=== PATIENT | female | born 1940 | race Caucasian/White ===

== ENCOUNTER 2016-06-02 22:20 | Inpatient (IN) | payer OTHER ==
[2016-06-03 00:15] VITALS: BP 114/55
[2016-06-03] MEDS ORDERED: clonazePAM 0.5 MG TABLET PO PRN (00:30)
[2016-06-03] MEDS ORDERED: MAGNESIUM HYDROXIDE 30 ML UDC PO PRN (00:30)
[2016-06-03] MEDS ORDERED: MAG HYDROX/AL HYDROX/SIMETH 30 ML UDC PO PRN (00:30)
[2016-06-03] MEDS ORDERED: TEMAZEPAM 7.5 MG CAPSULE PO PRN (00:30)
[2016-06-03] MEDS ORDERED: ACETAMINOPHEN 325 MG TABLET PO PRN (00:30)
--- NOTE | 2016-06-03 00:45 | NUR ---
GPS ARCHIVIST MILITARY HISTORY NOTES: ADMITTED A 76 YO FEMALE FROM [facility] ON 5150 HOLD FOR GD. PATIENT INITIALLY CAME FROM [facility]. PER HOLD, THE PATIENT STATED "MY MIND IS SORT OF MIXED UP", PATIENT IS DISORGANIZED IN SPEECH AND BEHAVIOR.SHE HAS HISTORY OF HEARING VOICES, AND SEEING THINGS. SHE IS UNABLE TO THINK RATIONALLY AND IS UNABLE TO MEET THE BASIC NEEDS FOR HERSELF. PATIENT CAME TO THE UNIT VIA GURNEY, ESCORTED BY AMBULANCE EMS STAFF. PATIENT THEN USHERED TO THE ROOM, FACE TO FACE ASSESSMENT AND EVALUATION STARTED. PATIENT IS ALERT AND ORIENTED X1-2. UNKEMPT, DISORGANIZED, UNTIDY, CALM AND COOPERATIVE. ABLE TO STATE HER NAME, DATE OF , THE PLACE-[facility], HOWEVER, SHE KEEPS REPEATING THE SAME QUESTION TO THE TIME AND THE PLACE SHE'S AT. REALITY ORIENTATION DONE. ORIENTATION TO UNIT POLICIES, STAFF, CARE PLAN DONE. ADMISSION PAPERS SIGNED. VITAL SIGNS CHECKED AND RECORDED. SKIN AND BODY ASSESSMENT DONE WITH EMMIE HUDSON. PICTURES TAKEN AND PLACED IN THE CHART. DR. SAGASTUME AND DR. WOODWARD INFORMED OF THE SAID ADMISSION. MEDICATION RECONCILIATION DONE FOR MEDICAL. PLACED CALL LEDEZMA WITHIN PATIENT'S REACH. PROVIDED WITH ORAL FLUIDS TOLERATED. Q15 MIN CHECKS INITIATED PER UNIT PROTOCOL. ENVIRONMENTAL SAFETY CHECK DONE. BELONGINGS AND CONTRABAND CHECKED-PATIENT CAME TO THE UNIT WITH NO BELONGINGS ACCOUNTED FOR. WILL MONITOR PATIENT'S MOOD AND BEHAVIOR WHILE ADMITTED HERE AT [facility]. WILL ENDORSE TO DAY SHIFT NURSE.
[2016-06-03] MEDS ORDERED: CARV3.12 PO (01:04)
[2016-06-03] MEDS ORDERED: FURO-144 PO (01:04)
[2016-06-03] MEDS ORDERED: DIVA250T PO (01:04)
[2016-06-03] MEDS ORDERED: LEVE500T9 PO (01:04)
[2016-06-03] MEDS ORDERED: DOCU-25 PO (01:04)
[2016-06-03] MEDS ORDERED: FAMO-131 PO (01:04)
[2016-06-03] MEDS ORDERED: CIPR-263 PO (01:04)
[2016-06-03] MEDS ORDERED: LISI5TAB PO (01:04)
[2016-06-03] MEDS ORDERED: METH5TAB6 PO (01:09)
[2016-06-03] MEDS ORDERED: QUET25TA PO (01:10)
[2016-06-03] MEDS ORDERED: HEPA500014 SUBCUT (01:17)
[2016-06-03] MEDS ORDERED: DOCUSATE SODIUM 100 MG CAPSULE PO PRN (01:30)
[2016-06-03] MEDS ORDERED: Z GUARD REMEDY 2 OZ OINT TP PRN (02:00)
[2016-06-03] MEDS ORDERED: Z GUARD REMEDY 4 OZ OINT TP ONE (06:00)
[2016-06-03] MEDS ORDERED: Z GUARD REMEDY 4 OZ OINT TP PRN (06:30)
[2016-06-03 08:00] VITALS: BP 113/60
[2016-06-03] MEDS ORDERED: LEVETIRACETAM (250 MG) 250 MG TABLET PO SCH (09:00)
[2016-06-03] MEDS: CIPROFLOXACIN HCL 250 MG TABLET PO SCH ×2 (09:03→17:32)
[2016-06-03] MEDS: FUROSEMIDE 40 MG TABLET PO SCH (09:04)
[2016-06-03] MEDS: FAMOTIDINE (20 MG) 20 MG TABLET PO SCH (09:04)
[2016-06-03] MEDS: LISINOPRIL (5MG) 5 MG TABLET PO SCH (09:08)
[2016-06-03] MEDS: METHIMAZOLE (5MG) 5 MG TABLET PO SCH (09:08)
[2016-06-03] MEDS: HEPARIN SODIUM, PORCINE 5000 UNITS/1 ML VIAL SQ SCH ×2 (09:12→22:59)
[2016-06-03] MEDS: CARVEDILOL 3.125 MG TABLET PO SCH ×2 (10:07→17:35)
[2016-06-03] MEDS ORDERED: QUETIAPINE FUMARATE 25 MG TABLET PO SCH (11:30)
[2016-06-03 14:17] LABS: HDL CHOLESTEROL 40 mg/dL (40-60); LDL 108 mg/dL (0-99); TRIGLYCERIDES 135 mg/dL (30-150)
[2016-06-03 14:33] LABS: CHOLESTEROL 166 mg/dL (<200)
[2016-06-03 16:00] VITALS: BP 112/66
--- NOTE | 2016-06-03 17:23 | NUR ---
Initial discharge plan: Pt. resides with her Frederick Martines ([phone]) at [address] [facility] [address] and would like to return when discharged. ALLYSON will follow up with Frederick to confirm pt's return back home and will work with MD, pt, and family to form safe and proper discharge.
[2016-06-03] MEDS: QUETIAPINE FUMARATE 25 MG TABLET PO SCH (17:32)
[2016-06-03] MEDS ORDERED: DIVALPROEX SODIUM 250 MG TABLET.DR PO SCH (18:00)
[2016-06-03 20:00] VITALS: BP 115/63
[2016-06-03 22:27] LABS: INR 0.97 (0.87-1.13); PROTHROMBIN TIME 10.4 SECS (9.5-12.7)
[2016-06-04 08:31] VITALS: BP 120/71
[2016-06-04 08:34] LABS: BILIRUBIN,TOTAL 0.4 mg/dL (0.2-1.0); CALCIUM, SERUM 9.1 mg/dL (8.5-10.1); CREATININE 1.1 mg/dL (0.6-1.3); POTASSIUM 4.1 mmol/L (3.5-5.1); TOTAL PROTEIN, SERUM 6.2 g/dL (6.4-8.2)
[2016-06-04] MEDS: LISINOPRIL (5MG) 5 MG TABLET PO SCH (09:25)
[2016-06-04] MEDS: CARVEDILOL 3.125 MG TABLET PO SCH ×2 (09:25→16:53)
[2016-06-04] MEDS: METHIMAZOLE (5MG) 5 MG TABLET PO SCH (09:26)
[2016-06-04] MEDS: FAMOTIDINE (20 MG) 20 MG TABLET PO SCH (09:26)
[2016-06-04] MEDS: FUROSEMIDE 40 MG TABLET PO SCH (09:26)
[2016-06-04] MEDS: QUETIAPINE FUMARATE 25 MG TABLET PO SCH ×2 (09:26→16:52)
[2016-06-04] MEDS: CIPROFLOXACIN HCL 250 MG TABLET PO SCH ×2 (09:26→16:52)
[2016-06-04] MEDS: HEPARIN SODIUM, PORCINE 5000 UNITS/1 ML VIAL SQ SCH ×2 (09:27→20:40)
--- NOTE | 2016-06-04 14:04 | NUR ---
UR update: ALLYSON faxed updated clinicals to casey saw operator, Brittany Pimentel from [facility] [phone] fax [phone]. Will follow up
--- NOTE | 2016-06-04 16:30 | NUR ---
DR. SAGASTUME, IN TO SEE PT.
[2016-06-04 16:47] VITALS: BP 121/70
[2016-06-04] MEDS: DIVALPROEX SODIUM 250 MG TABLET.DR PO SCH (16:52)
[2016-06-04] MEDS ORDERED: DIVALPROEX SODIUM 250 MG TABLET.DR PO SCH (17:00)
[2016-06-04 20:28] VITALS: BP 100/52
[2016-06-05] MEDS: LISINOPRIL (5MG) 5 MG TABLET PO SCH (09:00)
[2016-06-05] MEDS: FUROSEMIDE 40 MG TABLET PO SCH (09:01)
[2016-06-05] MEDS: METHIMAZOLE (5MG) 5 MG TABLET PO SCH (09:01)
[2016-06-05] MEDS: QUETIAPINE FUMARATE 25 MG TABLET PO SCH ×2 (09:01→17:29)
[2016-06-05] MEDS: FAMOTIDINE (20 MG) 20 MG TABLET PO SCH (09:02)
[2016-06-05] MEDS: CIPROFLOXACIN HCL 250 MG TABLET PO SCH ×2 (09:02→17:28)
[2016-06-05] MEDS: DIVALPROEX SODIUM 250 MG TABLET.DR PO SCH ×3 (09:02→18:49)
[2016-06-05] MEDS: CARVEDILOL 3.125 MG TABLET PO SCH ×2 (09:03→17:29)
[2016-06-05 09:32] VITALS: BP 133/76
[2016-06-05 16:34] VITALS: BP 121/64
--- NOTE | 2016-06-05 17:30 | NUR ---
DR. SAGASTUME,DR. BASSETT IN TO SEE PT.
--- NOTE | 2016-06-05 19:42 | NUR ---
GPS/RN NOTE: PATIENT IS SITTING AT THE EDGE OF THE BED, AWAKE, ALERT, ORIENTED X3, NO APPARENT DISTRESS NOTED. NO S/S OR COMPLAINTS MADE AT THIS TIME. ISOLATIVE. STAYS MOSTLY INSIDE THE ROOM. WILL CONTINUE TO MONITOR Q 15 MINS. TO MAINTAIN SAFETY.
[2016-06-05 20:06] VITALS: BP 115/74
[2016-06-06 08:00] VITALS: BP 120/80
[2016-06-06] MEDS: DIVALPROEX SODIUM 250 MG TABLET.DR PO SCH (08:43)
[2016-06-06] MEDS: CIPROFLOXACIN HCL 250 MG TABLET PO SCH (08:43)
[2016-06-06 08:44] VITALS: BP 120/80
[2016-06-06] MEDS: CARVEDILOL 3.125 MG TABLET PO SCH (08:44)
[2016-06-06] MEDS: LISINOPRIL (5MG) 5 MG TABLET PO SCH (08:44)
[2016-06-06] MEDS: FAMOTIDINE (20 MG) 20 MG TABLET PO SCH (08:44)
[2016-06-06] MEDS: QUETIAPINE FUMARATE 25 MG TABLET PO SCH (08:44)
[2016-06-06] MEDS: FUROSEMIDE 40 MG TABLET PO SCH (08:44)
[2016-06-06] MEDS: METHIMAZOLE (5MG) 5 MG TABLET PO SCH (08:45)
--- NOTE | 2016-06-06 09:02 | NUR ---
PT. WITH AN ORDER TO D/C HOLD AND D/C HOME. WITHOUT DISTRESS, DENIES SUICIDAL AND HOMICIDAL AND TO FOLLOW UP WITH PSYCH AND MEDICAL DOCTORS.
--- NOTE | 2016-06-06 11:40 | NUR ---
GPS ETCHER ELECTROLYTIC NOTES: PATIENT DISCHARGED HOME WITH SHALINI CÁRDENAS [[phone]] AT [address] [facility] [address] VIA PRIVATE [address]. PATIENT'S CONDITION IS STABLE FOR DISCHARGE. VS STABLE. PATIENT DENIES ANY SI/HI/AVH AT THE TIME OF DISCHARGE. PICTURES TAKEN AND DOCUMENTED IN THE CHART. EDUCATIONAL EXIT CARE PRINTED, SIGNED AND PROVIDED TO THE PATIENT ALONG WITH PRESCRIPTIONS. PATIENT LEFT THE UNIT AT 1055 IN STABLE CONDITION, ACCOMPANIED BY AND STAFF MEMBER.
--- NOTE | 2016-06-06 15:26 | NUR ---
Discharge note: Pt. was discharged back with her Frederick Martines ([phone]) at [address] [facility] [id number] . Pt's picked her up via private car. They both agreed with discharge plan. Pt's signed continuing care acknowledgement form and all discharge paperwork was signed. Pt. stated that he will take care of all follow up appointments. Pt. was provided a referral to [facility] [address] [place] [id number] . Discharge instructions has been provided to the patient and .
== END 2016-06-06 10:55 | disposition home or self-care (01) | DRG 885 ==
LOC: GPS 23:58
PROVIDERS: ADMIT Psychiatry & Neurology Psychiatry; ATTEND Internal Medicine
DX: F29 Unspecified psychosis not due to a substance or known physiological condition (principal); E44.1 Mild protein-calorie malnutrition; I10 Essential (primary) hypertension; F03.90 Unspecified dementia, unspecified severity, without behavioral disturbance, psychotic disturbance, mood disturbance, and anxiety; E78.5 Hyperlipidemia, unspecified; I50.9 Heart failure, unspecified; I25.10 Atherosclerotic heart disease of native coronary artery without angina pectoris; E03.9 Hypothyroidism, unspecified
CPT/HCPCS: 36415; 80053-TC; 80061-TC; 85610-TC; 87081-TC; 97116-TC; 97530-TC; J1644